=== PATIENT | female | born 1970 | race Two or more races ===

== ENCOUNTER 2024-02-25 11:38 | Outpatient (AMB) | payer OTHER, SELFPAY ==
--- NOTE | 2024-02-25 11:40 | MHC.OFFVIS ---
Intake Vital Signs 02/25/24 11:48 Height 5 ft 2 in Weight 205 lb BMI 37.5 BP 123/58 L Blood Pressure Location Lt brachial Position Sitting Pulse 79 Intake Visit Reasons: Colonoscopy Screening Intake Note: Patient new consult for 1st pre colonoscopy screening. Patient cc: constipation on and off, denies any other GI issues. 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 Brother had polyps in his 50s No nausea, vomiting, hematemesis, fever or chills PFSH Family History Mother Pancreas cancer Father Heart disease Social History Household Members: Family Alcohol intake: never Patient Tobacco Use Status: Never used Tobacco Review of Systems Const All systems reviewed & are unremarkable except as noted in HPI and below Card Denies chest pain and Denies dyspnea Resp Denies dyspnea GI Denies abdominal pain, Denies nausea, Reports vomiting and Reports other (Hemorrhoids) Physical Exam Vital Signs: Last Vital Signs Pulse 79 02/25/24 11:48 BP 123/58 L 02/25/24 11:48 BMI result Body Mass Index 37.5 Const General: cooperative, healthy appearing and comfortable Orientation/consciousness: patient oriented x3 Limitations: no limitations Eyes Sclerae: sclerae normal Resp Effort & Inspection: normal respiratory effort and able to speak in complete sentences Auscultation: clear to auscultation bilaterally and no wheezes Cardio Rate: regular rate Rhythm: regular rhythm Heart sounds: S1 normal heart sound present and S2 normal heart sound present GI Palpation (GI): Soft to palpation and nontender Percussion: Yes normal to percussion Auscultation: normal bowel sounds Skin General skin exam: no rashes or lesions noted Neuro General: patient oriented x3 Extrem General: Yes full ROM Psych Appearance: grossly normal and well kempt Mental Status: mental status grossly normal Speech and movement: Normal speech and movement present and Clear speech present Affect: Anxious affect present Attitude: cooperative Thought process: Normal thought process present Thought content: Normal thought content present Insight: Good insight present (Psych) Judgement: Good judgement present (Psych) Assessment & Plan Assessment & Plan (1) Other family history of colon polyps: Comment: Brother in his 50s Code(s): Z83.718 - Other family history of colon polyps (2) Encounter for screening colonoscopy: Comment: brother -age 50s Code(s): Z12.11 - Encounter for screening for malignant neoplasm of colon Plan: Index screening colonoscopy discussed procedure, rare risks need for escort (3) Hemorrhoids: Code(s): K64.9 - Unspecified hemorrhoids Plan: Maintain high-fiber diet Rectal cream Plan index screening MG prep Orders: Orders Colonoscopy - GI Use Only 02/25/24 Z12.11 - Encounter for screening for malignant neoplasm of colon, Z83.718 - Other family history of colon polyps Medications: New bisacodyl (Dulcolax (bisacodyl)) Day before procedure @ 12 noon Take 4 tablets by mouth followed by large glass of water 20 mg (4 x 5 mg) PO ONCE PRN 4 tabs 0RF colonoscopy prep 1 day Z12.11 - Encounter for screening for malignant neoplasm of colon polyethylene glycol 3350 (Miralax) Take as directed by mouth the day before your procedure. 238 grams PO ONCE PRN 238 grams 0RF laxative effect 1 day hydrocortisone 2.5% (Proctosol HC) 1 appl [place] BEDTIME PRN 30 grams 3RF hemorrhoids hydrocortisone 2.5% (Proctosol HC) 1 appl [place] BEDTIME PRN 30 grams 3RF hemorrhoids 30 days Patient Instructions: Index screening colonoscopy MiraLax Gatorade prep reviewed literature Maintain high-fiber diet with hemorrhoid If reconsider surgical consult Rectal cream Encouraged to call questions or concerns Coding Level of Care Code New Pt Level 3 ([id number]) Diagnoses Other family history of colon polyps Z83.718 Encounter for screening colonoscopy Z12.11 Hemorrhoids K64.9 Time Spent (min) 30
[2024-02-25 11:48] VITALS: BP 123/58; PULSE 79; BMI 37.5
== END 2024-02-25 12:30 | disposition home or self-care (01) ==
PROVIDERS: PCP Physician Assistant Medical; Visit Provider Physician Assistant
DX: Z83.718 Family history of other colon polyps (principal); Z12.11 Encounter for screening for malignant neoplasm of colon; K64.9 Unspecified hemorrhoids
CPT/HCPCS: 99203

== ENCOUNTER → 2024-02-25 11:38 | Outpatient (BNVA) | payer OTHER, SELFPAY | PROVIDERS: PCP Physician Assistant Medical; Visit Provider Physician Assistant ==